=== PATIENT | female | born 1970 | race Caucasian/White ===

== ENCOUNTER 2018-02-09 05:49 | Inpatient (IN) | payer BC ==
[2018-02-09] MEDS ORDERED: METHYLPREDNISOLONE 125 MG INJ ONE (06:21)
--- NOTE | 2018-02-09 06:38 | EDPHYS ---
Physician Documentation [facility] Name: Gris Lee Age: 47 yrs Sex: Female : 1970 Arrival Date: 02/09/2018 Time: 05:52 Bed 4 Private MD: ED Physician Grayson Najera HPI: 02/09 06:33 This 47 yrs old Female presents to ER via Wheelchair with complaints of hilda Breathing Difficulty, Chest Pain. 06:33 The patient has shortness of breath at rest, with light activity. Onset: The hilda symptoms/episode began/occurred 1 week(s) ago. Duration: The symptoms are continuous, and are steadily getting worse. The patient's shortness of breath is aggravated by coughing, talking. Associated signs and symptoms: Pertinent positives: chest pain, non-productive cough, fever. Severity of symptoms: At their worst the symptoms were mild moderate in the emergency department the symptoms are unchanged. The patient has experienced similar episodes in the past, multiple times. Historical: - Allergies: 06:09 Effexor; lp1 06:09 Keflex; lp1 06:09 Paxil; lp1 - Home Meds: 06:09 Synthroid 88 mcg Oral tab 1 tab once daily [Active]; Lasix Oral [Active]; lp1 - PMHx: 06:09 COPD; CHF; Asthma; lp1 - PSHx: 06:09 Cholecystectomy; lp1 - Immunization history:: Adult Immunizations up to date. - Social history:: Smoking status: Patient uses tobacco products, smokes one pack cigarettes per day. - Ebola Screening: : No symptoms or risks identified at this time. - Family history:: not pertinent. ROS: 06:33 Constitutional: Negative for fever, chills, and weight loss, Eyes: Negative for injury, hilda pain, redness, and discharge, ENT: Negative for injury, pain, and discharge, Neck: Negative for injury, pain, and swelling, Cardiovascular: Negative for chest pain, palpitations, and edema, Abdomen/GI: Negative for abdominal pain, nausea, vomiting, diarrhea, and constipation, Back: Negative for injury and pain, : Negative for injury, bleeding, discharge, and swelling, MS/Extremity: Negative for injury and deformity, Skin: Negative for injury, rash, and discoloration, Neuro: Negative for headache, weakness, numbness, tingling, and seizure, Psych: Negative for depression, anxiety, suicide ideation, homicidal ideation, and hallucinations, Allergy/Immunology: Negative for hives, rash, and allergies, Endocrine: Negative for neck swelling, polydipsia, polyuria, polyphagia, and marked weight changes, Hematologic/Lymphatic: Negative for swollen nodes, abnormal bleeding, and unusual bruising. 06:33 Respiratory: Positive for cough, shortness of breath, wheezing, inspiratory, expiratory. Exam: 06:33 Constitutional: This is a well developed, well nourished patient who is awake, alert, hilda and in no acute distress. Head/Face: Normocephalic, atraumatic. Eyes: Pupils equal round and reactive to light, extra-ocular motions intact. Lids and lashes normal. Conjunctiva and sclera are non-icteric and not injected. Cornea within normal limits. Periorbital areas with no swelling, redness, or edema. ENT: Nares patent. No nasal discharge, no septal abnormalities noted. Tympanic membranes are normal and external auditory canals are clear. Oropharynx with no redness, swelling, or masses, exudates, or evidence of obstruction, uvula midline. Mucous membranes moist. Neck: Trachea midline, no thyromegaly or masses palpated, and no cervical lymphadenopathy. Supple, full range of motion without nuchal rigidity, or vertebral point tenderness. No Meningismus. Chest/axilla: Normal chest wall appearance and motion. Nontender with no deformity. No lesions are appreciated. Abdomen/GI: Soft, non-tender, with normal bowel sounds. No distension or tympany. No guarding or rebound. No evidence of tenderness throughout. Back: No spinal tenderness. No costovertebral tenderness. Full range of motion. Female : Normal external genitalia. Skin: Warm, dry with normal turgor. Normal color with no rashes, no lesions, and no evidence of cellulitis. MS/ Extremity: Pulses equal, no cyanosis. Neurovascular intact. Full, normal range of motion. Neuro: Awake and alert, GCS 15, oriented to person, place, time, and situation. Cranial nerves II-XII grossly intact. Motor strength 5/5 in all extremities. Sensory grossly intact. Cerebellar exam normal. Normal gait. Psych: Awake, alert, with orientation to person, place and time. Behavior, mood, and affect are within normal limits. 06:33 Cardiovascular: Rate: tachycardic, Rhythm: regular, Pulses: Pulses are 4+ in bilateral radial, brachial, femoral, popliteal, posterior tibial and and dorsalis pedis arteries.. Heart sounds: normal, Edema: is not appreciated, JVD: is not appreciated. 06:33 Musculoskeletal/extremity: ROM: no acute changes, intact in all extremities, full active range of motion, full passive range of motion, Circulation is intact in all extremities. Sensation intact. Compartment Syndrome exam of affected extremity: is normal. DVT Exam: no pain, no swelling, no tenderness, negative Homans' sign noted on exam, no appreciated bluish discoloration, no erythema, no increased warmth. Vital Signs: 06:00 BP 142 / 74; Pulse 122; Resp 36; Pulse Ox 73% on R/A; Weight 117.93 kg; Height 5 ft. 8 lp1 in. (172.72 cm); 06:09 Pulse Ox 90% on Nebulizer Mask; lp1 06:30 BP 141 / 65; Pulse 113; Resp 32 S; Pulse Ox 90% on Nebulizer Mask; cc3 07:10 Pulse Ox 67% on R/A; hb 07:15 Pulse Ox 85% on 4 lpm NC; hb 07:33 BP 139 / 78; Pulse 106; Resp 20; Pulse Ox 91% on 50% BiPAP; Pain 0/10; ss 07:34 Temp 101.0(A); ss 08:30 BP 135 / 85; Pulse 99; Resp 24; Pulse Ox 94% on 50% BiPAP; hb 09:30 BP 136 / 90; Pulse 99; Resp 19; Pulse Ox 92% on 50% BiPAP; ca1 06:00 Body Mass Index 39.53 (117.93 kg, 172.72 cm) lp1 08:30 BIPAP 14/7, R14, 50% FIO2 hb MDM: 06:27 Patient medically screened. [facility] 06:36 Data reviewed: vital signs, nurses notes, lab test result(s), EKG, radiologic studies, hilda plain films. 02/09 05:58 Order name: Basic Metabolic Panel tw4 02/09 05:58 Order name: CBC with Diff tw4 02/09 05:58 Order name: LFT's; Complete Time: 07:07 tw4 02/09 05:58 Order name: Magnesium; Complete Time: 07:07 tw4 02/09 05:58 Order name: NT PRO-BNP; Complete Time: 07:07 tw4 02/09 05:58 Order name: PT-INR; Complete Time: 07:47 tw4 02/09 05:58 Order name: Troponin (emerg Dept Use Only); Complete Time: 07:07 tw4 02/09 05:58 Order name: Basic Metabolic Panel; Complete Time: 07:07 EDMS 02/09 05:58 Order name: CBC with Automated Diff; Complete Time: 07:06 EDMS 02/09 07:48 Order name: Blood Culture Adult (2) hb 02/09 07:48 Order name: Flu hb 02/09 07:48 Order name: Flu hilda 02/09 07:48 Order name: Blood Culture Adult (2) hilda 02/09 08:14 Order name: ABG hilda 02/09 05:58 Order name: XRAY Chest (1 view) tw4 02/09 07:06 Order name: Echo w/ Doppler hilda 02/09 07:21 Order name: BIPAP [facility] 02/09 08:47 Order name: Influenza Screen (A ; Complete Time: 08:49 EDMS 02/09 09:34 Order name: RAD; Complete Time: 09:48 EDMS 02/09 10:38 Order name: Blood Culture EDWA 02/09 05:58 Order name: EKG; Complete Time: 05:59 tw4 02/09 05:58 Order name: Cardiac monitoring; Complete Time: 06:15 tw4 02/09 05:58 Order name: EKG - Nurse/Tech; Complete Time: 06:13 tw4 02/09 05:58 Order name: IV Saline Lock; Complete Time: 06:13 tw4 02/09 05:58 Order name: Labs collected and sent; Complete Time: 06:13 tw4 02/09 05:58 Order name: O2 Per Protocol; Complete Time: 06:14 tw4 02/09 05:58 Order name: O2 Sat Monitoring; Complete Time: 06:14 tw4 Administered Medications: 05:55 Drug: Albuterol - atroVENT (3:1) (2.5 mg - 0.5 mg) 3 ml Route: Nebulizer; lp1 06:45 Follow up: Response: No adverse reaction hb 06:23 Drug: SOLU-Medrol 125 mg Route: IVP; Site: right antecubital; lp1 07:20 Follow up: Response: No adverse reaction hb 06:50 Drug: Xopenex 2.5 mg Route: Inhalation; cc3 06:53 Drug: Decadron - Dexamethasone 10 mg Route: IVP; Site: right antecubital; cc3 07:40 Follow up: Response: No adverse reaction hb 07:00 Drug: Magnesium Sulfate 2 grams Route: IVPB; Infused Over: 2 hrs; Site: right cc3 antecubital; 07:06 Not Given (Duplicate Order): NS 0.9% 500 ml IV at bolus once hilda 07:09 Not Given (Duplicate Order): NS 0.9% 1000 ml IV at 75 ml/hr continuous hilda 07:45 Drug: Lovenox 1 mg/kg Route: Sub-Q; Site: abdomen; hb 08:30 Follow up: Response: No adverse reaction hb 07:46 Drug: Lasix 40 mg Route: IVP; Site: right antecubital; hb 08:40 Follow up: Response: No adverse reaction hb 07:46 Drug: Aspirin Chewable Tablet 324 mg Route: PO; hb 08:40 Follow up: Response: No adverse reaction hb 07:46 Drug: Pepcid 20 mg Route: IVP; Site: right antecubital; hb 08:30 Follow up: Response: No adverse reaction hb 07:49 CANCELLED (Duplicate Order): Tylenol 650 mg PO once hb 07:57 Drug: Acetaminophen 1000 mg Route: PO; hb 08:45 Follow up: Response: No adverse reaction hb 07:57 Drug: Tamiflu 75 mg Route: PO; hb 08:45 Follow up: Response: No adverse reaction hb 08:00 Drug: levofloxacin 500 mg Volume: 100 ml; Route: IVPB; Infused Over: 60 mins; Site: hb right antecubital; 08:17 Drug: Ativan 0.5 mg Route: IVP; Site: right antecubital; hb 09:00 Follow up: Response: No adverse reaction hb Disposition: 02/09/18 06:37 Hospitalization ordered by Lisa Daniel for Inpatient Admission. Preliminary diagnosis are Dyspnea, Asthma, Bronchitis, not specified as acute or chronic, Hypoxemia, Cardiomegaly, Unspecified combined systolic (congestive) and diastolic (congestive) heart failure, Hypomagnesemia. - Bed requested for Telemetry/MedSurg (Inpatient). - Status is Inpatient Admission. hb - Condition is Stable. - Problem is new. - Symptoms have improved. UTI on Admission? No Signatures: Dispatcher [employer] EDMS Amarilis najera Grayson Álvarez MD MD cha Pena, Laura, RN RN lp1 Giana Carmen RN RN Wyatt Hawkins MD MD tw4 Adelia Maldonado cc3 Corrections: (The following items were deleted from the chart) 07:12 06:37 Hospitalization Ordered by Lisa Daniel MD for Observation. Preliminary hilda diagnosis is Dyspnea; Asthma; Bronchitis, not specified as acute or chronic; Hypoxemia. Bed requested for Telemetry/MedSurg (observation). Status is Observation. Condition is Stable. Problem is new. Symptoms have improved. UTI on Admission? No. hilda 07:12 07:12 02/09/2018 06:37 Hospitalization Ordered by Lisa Daniel MD for Observation. hilda Preliminary diagnosis is Dyspnea; Asthma; Bronchitis, not specified as acute or chronic; Hypoxemia; Cardiomegaly; Unspecified combined systolic (congestive) and diastolic (congestive) heart failure; Hypomagnesemia. Bed requested for Telemetry/MedSurg (observation). Status is Observation. Condition is Stable. Problem is new. Symptoms have improved. UTI on Admission? No. hilda 07:49 07:47 Tylenol 650 mg PO once ordered. hilda hb 09:21 07:12 02/09/2018 06:37 Hospitalization Ordered by Lisa Daniel MD for Inpatient bd Admission. Preliminary diagnosis is Dyspnea; Asthma; Bronchitis, not specified as acute or chronic; Hypoxemia; Cardiomegaly; Unspecified combined systolic (congestive) and diastolic (congestive) heart failure; Hypomagnesemia. Bed requested for Telemetry/MedSurg (observation). Status is Inpatient Admission. Condition is Stable. Problem is new. Symptoms have improved. UTI on Admission? No. hilda 10:00 09:21 02/09/2018 06:37 Hospitalization Ordered by Lisa Daniel MD for Inpatient bd Admission. Preliminary diagnosis is Dyspnea; Asthma; Bronchitis, not specified as acute or chronic; Hypoxemia; Cardiomegaly; Unspecified combined systolic (congestive) and diastolic (congestive) heart failure; Hypomagnesemia. Bed requested for Telemetry/MedSurg (observation). Status is Inpatient Admission. Condition is Stable. Problem is new. Symptoms have improved. UTI on Admission? No. bd 10:15 10:00 02/09/2018 06:37 Hospitalization Ordered by Lisa Daniel MD for Inpatient bd Admission. Preliminary diagnosis is Dyspnea; Asthma; Bronchitis, not specified as acute or chronic; Hypoxemia; Cardiomegaly; Unspecified combined systolic (congestive) and diastolic (congestive) heart failure; Hypomagnesemia. Bed requested for Telemetry/MedSurg (Inpatient). Status is Inpatient Admission. Condition is Stable. Problem is new. Symptoms have improved. UTI on Admission? No. bd 10:40 10:15 02/09/2018 06:37 Hospitalization Ordered by Lisa Daniel MD for Inpatient hb Admission. Preliminary diagnosis is Dyspnea; Asthma; Bronchitis, not specified as acute or chronic; Hypoxemia; Cardiomegaly; Unspecified combined systolic (congestive) and diastolic (congestive) heart failure; Hypomagnesemia. Bed requested for Telemetry/MedSurg (Inpatient). Status is Inpatient Admission. Condition is Stable. Problem is new. Symptoms have improved. UTI on Admission? No. bd
--- NOTE | 2018-02-09 06:38 | ER ---
Nurse's Notes [facility] Name: Gris Lee Age: 47 yrs Sex: Female : 1970 Arrival Date: 02/09/2018 Time: 05:52 Bed 4 Private MD: Diagnosis: Dyspnea;Asthma;Bronchitis, not specified as acute or chronic;Hypoxemia;Cardiomegaly;Unspecified combined systolic (congestive) and diastolic (congestive) heart failure;Hypomagnesemia Presentation: 02/09 06:06 Presenting complaint: Patient states: Shortness of breath since yesterday, worse today; lp1 Albuterol nebs at home with no relief; continued wheezing. Transition of care: patient was not received from another setting of care. Onset of symptoms was February 08, 2018. Risk Assessment: Do you want to hurt yourself or someone else? Patient reports no desire to harm self or others. Initial Sepsis Screen: Does the patient meet any 2 criteria? RR > 20 per min. HR > 90 bpm. Care prior to arrival: None. 06:06 Method Of Arrival: Wheelchair lp1 06:06 Acuity: MARJAN 2 lp1 Triage Assessment: 06:10 General: Appears distressed, Behavior is anxious. Respiratory: Reports shortness of lp1 breath Airway is patent Trachea midline Respiratory effort is labored, Respiratory pattern is tachypnea Breath sounds with wheezes bilaterally. Onset: The symptoms/episode began/occurred yesterday, the patient has severe shortness of breath. Historical: - Allergies: 06:09 Effexor; lp1 06:09 Keflex; lp1 06:09 Paxil; lp1 - Home Meds: 06:09 Synthroid 88 mcg Oral tab 1 tab once daily [Active]; Lasix Oral [Active]; lp1 - PMHx: 06:09 COPD; CHF; Asthma; lp1 - PSHx: 06:09 Cholecystectomy; lp1 - Immunization history:: Adult Immunizations up to date. - Social history:: Smoking status: Patient uses tobacco products, smokes one pack cigarettes per day. - Ebola Screening: : No symptoms or risks identified at this time. - Family history:: not pertinent. Screenin:11 Abuse screen: Denies threats or abuse. Denies injuries from another. Nutritional lp1 screening: No deficits noted. Tuberculosis screening: No symptoms or risk factors identified. Fall Risk None identified. 06:11 Abuse screen: Denies threats or abuse. Nutritional screening: No deficits noted. jd3 Tuberculosis screening: No symptoms or risk factors identified. Fall Risk Ambulatory Aid- None/Bed Rest/Nurse Assist (0 pts). Gait- Normal/Bed Rest/Wheelchair (0 pts) Mental Status- Oriented to own ability (0 pts). Total Queen Fall Scale indicates No Risk (0-24 pts). Assessment: 06:07 General: Appears uncomfortable, Behavior is cooperative, appropriate for age, agitated. jd3 Pain: Denies pain. Neuro: Level of Consciousness is awake, alert, obeys commands, Oriented to person, place, time, situation, Appropriate for age. Cardiovascular: Heart tones S1 S2 present Capillary refill < 3 seconds Patient's skin is warm and dry. Rhythm is regular. Respiratory: Reports shortness of breath at rest Airway is patent Respiratory effort is labored, Respiratory pattern is regular, symmetrical, Breath sounds with wheezes bilaterally. the patient has severe shortness of breath. GI: Abdomen is round non-distended, Patient currently denies abdominal pain. : No signs and/or symptoms were reported regarding the genitourinary system. EENT: No signs and/or symptoms were reported regarding the EENT system. Derm: Skin is intact, Skin is Skin is normal, Skin temperature is warm. Musculoskeletal: Circulation, motion, and sensation intact. Range of motion: intact in all extremities. 07:18 Reassessment: SpO2 67% on RA, improved to 85% on 4LNC, Dr. Najera notified, RT hb notified BIPAP ordered. 07:22 Reassessment: RT at bedside. hb 07:25 Reassessment: BIPAP placed by RT, pt tolerating well. ss 07:30 Reassessment: BIPAP 14/7, R12, 50% FiO2. hb 07:58 Reassessment: T101, Dr. Najera notified, Blood Blood cultures x2 and flu culture hb sent. Tylenol and Tamiflu administered as ordered, BIPAP continues. 08:17 Reassessment: Pt restless, pulling off BiPAP mask, reports feeling "like I am in a wind hb tunnel, I can't take this mask." Dr. Najera notified, Ativan 0.5 mg administered as ordered,and RT notified of ABG order. 08:35 Reassessment: Pt reports anxiety relief, tolerating BIPAP well. hb 09:00 Reassessment: T99. BiPAP continues, pt tolerating well. SpO2 93-94%, Dr. Najera hb aware. Family remains at bedside. Admission ordered, awaiting room assignment at this time. 09:15 Reassessment: Echo at bedside. ca1 Vital Signs: 06:00 BP 142 / 74; Pulse 122; Resp 36; Pulse Ox 73% on R/A; Weight 117.93 kg; Height 5 ft. 8 lp1 in. (172.72 cm); 06:09 Pulse Ox 90% on Nebulizer Mask; lp1 06:30 BP 141 / 65; Pulse 113; Resp 32 S; Pulse Ox 90% on Nebulizer Mask; cc3 07:10 Pulse Ox 67% on R/A; hb 07:15 Pulse Ox 85% on 4 lpm NC; hb 07:33 BP 139 / 78; Pulse 106; Resp 20; Pulse Ox 91% on 50% BiPAP; Pain 0/10; ss 07:34 Temp 101.0(A); ss 08:30 BP 135 / 85; Pulse 99; Resp 24; Pulse Ox 94% on 50% BiPAP; hb 09:30 BP 136 / 90; Pulse 99; Resp 19; Pulse Ox 92% on 50% BiPAP; ca1 06:00 Body Mass Index 39.53 (117.93 kg, 172.72 cm) lp1 08:30 BIPAP 14/7, R14, 50% FIO2 hb ED Course: 05:52 Patient arrived in ED. es 05:55 Inserted saline lock: 20 gauge in right antecubital area, using aseptic technique. lp1 Blood collected. By adriana Reeves. 05:57 Wyatt Mccullough MD is Attending Physician. tw4 06:05 Inserted saline lock: 18 gauge in left antecubital area, using aseptic technique. lp1 06:07 Dewayne Hussein, IMER is Primary Nurse. jd3 06:08 Triage completed. lp1 06:10 Arm band placed on right wrist. lp1 06:10 Patient has correct armband on for positive identification. Placed in gown. Bed in low jd3 position. Call light in reach. Side rails up X 1. Adult w/ patient. 06:27 Attending Physician role handed off by Wyatt Mccullough MD hilda 06:27 Grayson Najera MD is Attending Physician. hilda 06:28 Primary Nurse role handed off by Dewayne Hussein, IMER cc3 06:28 Adelia Maldonado is Primary Nurse. cc3 06:36 Lisa Daniel MD is Hospitalizing Provider. hilda 06:44 X-ray completed. Portable x-ray completed in exam room. Patient tolerated procedure kw well. 07:00 Report given to IMER Faria. cc3 08:17 Giana Carmen RN is Primary Nurse. hb Administered Medications: 05:55 Drug: Albuterol - atroVENT (3:1) (2.5 mg - 0.5 mg) 3 ml Route: Nebulizer; lp1 06:45 Follow up: Response: No adverse reaction hb 06:23 Drug: SOLU-Medrol 125 mg Route: IVP; Site: right antecubital; lp1 07:20 Follow up: Response: No adverse reaction hb 06:50 Drug: Xopenex 2.5 mg Route: Inhalation; cc3 06:53 Drug: Decadron - Dexamethasone 10 mg Route: IVP; Site: right antecubital; cc3 07:40 Follow up: Response: No adverse reaction hb 07:00 Drug: Magnesium Sulfate 2 grams Route: IVPB; Infused Over: 2 hrs; Site: right cc3 antecubital; 07:06 Not Given (Duplicate Order): NS 0.9% 500 ml IV at bolus once hilda 07:09 Not Given (Duplicate Order): NS 0.9% 1000 ml IV at 75 ml/hr continuous hilda 07:45 Drug: Lovenox 1 mg/kg Route: Sub-Q; Site: abdomen; hb 08:30 Follow up: Response: No adverse reaction hb 07:46 Drug: Lasix 40 mg Route: IVP; Site: right antecubital; hb 08:40 Follow up: Response: No adverse reaction hb 07:46 Drug: Aspirin Chewable Tablet 324 mg Route: PO; hb 08:40 Follow up: Response: No adverse reaction hb 07:46 Drug: Pepcid 20 mg Route: IVP; Site: right antecubital; hb 08:30 Follow up: Response: No adverse reaction hb 07:49 CANCELLED (Duplicate Order): Tylenol 650 mg PO once hb 07:57 Drug: Acetaminophen 1000 mg Route: PO; hb 08:45 Follow up: Response: No adverse reaction hb 07:57 Drug: Tamiflu 75 mg Route: PO; hb 08:45 Follow up: Response: No adverse reaction hb 08:00 Drug: levofloxacin 500 mg Volume: 100 ml; Route: IVPB; Infused Over: 60 mins; Site: hb right antecubital; 08:17 Drug: Ativan 0.5 mg Route: IVP; Site: right antecubital; hb 09:00 Follow up: Response: No adverse reaction hb Outcome: 06:37 Decision to Hospitalize by Provider. [facility] 10:40 Patient left the ED. hb Signatures: Grayson Najera MD MD cha Salyer, Edna es Smirch, Shelby, RN RN ss Janel Rodriguez Laura, RN RN lp1 Giana Carmen RN RN Dewayne Tirado RN RN Wyatt Larsen MD MD tw4 Adelia Maldonado cc3 Shawnee Chatterjee RN RN ca1 Corrections: (The following items were deleted from the chart) 06:12 06:07 Respiratory: Airway is patent Respiratory effort is labored, Respiratory pattern jd3 is regular, symmetrical, Breath sounds with wheezes bilaterally. jd3 07:29 07:29 Reassessment: BIPAP placed by RT, pt tolerating well. ss ss
[2018-02-09 06:52] LABS: Absolute Lymphocytes (CBC) 0.4 K/uL (0.7-4.9); Absolute Monocytes 0.5 K/uL (0.1-1.3); Absolute Neutrophil 3.6 K/uL (1.8-8.0); Basophils % 0.3 % (0-1.3); Eosinophils % 0.1 % (0-4.4); Hematocrit 48.5 % (36.0-45.0); Lymphocytes % 8.1 % (15.3-44.8); MPV 8.9 fL (7.6-11.3); Monocytes % 10.4 % (3.3-12.3); RBC Red Blood Cell Count 4.62 M/uL (3.86-4.86)
[2018-02-09] MEDS ORDERED: LEVALBUTEROL 1.25 MG/3 ML NEB ONE (06:54)
[2018-02-09] MEDS ORDERED: DEXAMETHASONE 4 MG/ML VIAL ONE (06:55)
[2018-02-09] MEDS ORDERED: Levofloxacin500mg IV 500 MG/100 ML BAG IV ONE (06:55)
[2018-02-09] MEDS ORDERED: NA CHLORIDE 0.9% 1,000 ML ONE (06:55)
[2018-02-09] MEDS ORDERED: NA CHLORIDE 0.9% 500 ML ONE (06:55)
[2018-02-09] MEDS ORDERED: Magnesium Sulfate 2gm IVPB 2 G/50 ML BAG IV ONE (06:56)
[2018-02-09 07:06] LABS: Albumin 3.3 g/dL (3.4-5.0); Bilirubin Direct 0.5 mg/dL (0-0.2); Bilirubin Total 1.1 mg/dL (0.2-1.0); Magnesium 1.5 mg/dL (1.8-2.4); Potassium 4.6 mmol/L (3.5-5.1); Protein, Total 6.9 g/dL (6.4-8.2); Troponin (Emerg Dept Use Only) 0.06 ng/mL (0.0-0.045)
[2018-02-09 07:15] LABS: Protime INR 1.13
[2018-02-09] MEDS ORDERED: MORPHINE 4 MG/ML SYR IV PRN (07:38)
[2018-02-09] MEDS ORDERED: ACETAMINOPHEN 500 MG TAB PO PRN (07:38)
[2018-02-09] MEDS ORDERED: ONDANSETRON 4 MG/2 ML VIAL IV PRN (07:38)
[2018-02-09] MEDS ORDERED: ENOXAPARIN 100 MG/ML SYR SQ ONE (07:44)
[2018-02-09] MEDS ORDERED: FUROSEMIDE 40 MG/4 ML VIAL ONE (07:44)
[2018-02-09] MEDS ORDERED: ASPIRIN 81 MG CHEWABLE TABLET ONE (07:44)
[2018-02-09] MEDS ORDERED: ACETAMINOPHEN 500 MG TAB ONE (07:45)
[2018-02-09] MEDS ORDERED: FAMOTIDINE 20 MG/2 ML VIAL IV ONE (07:45)
[2018-02-09] MEDS: IPRATROPIUM BROM 0.5MG/2.5ML NEB SCH ×4 (08:00→19:50)
[2018-02-09] MEDS ORDERED: NA CHLORIDE 0.9% 1,000 ML IV SCH (08:00)
[2018-02-09] MEDS ORDERED: OSELTAMIVIR 75 MG CAP ONE (08:03)
[2018-02-09] MEDS ORDERED: LORazepam 2 MG/ML VIAL ONE (08:23)
[2018-02-09 08:35] LABS: Arterial Blood Carboxyhemoglob 3.8 % (0-1.5); Blood Gas Oxyhemoglobin 88.4 % (94-97); Blood O2 Saturation 92.9 % (92-98.5)
--- NOTE | 2018-02-09 09:25 | P.HP ---
Certification for Inpatient Patient admitted to: Inpatient With expected LOS: >2 Midnights Patient will require the following post-hospital care: None Practitioner: I am a practitioner with admitting privileges, knowledge of patient current condition, hospital course, and medical plan of care. Services: Services provided to patient in accordance with Admission requirements found in Title 42 Section 412.3 of the Code of Federal Regulations Patient History Date of Service: 02/09/18 Reason for admission: Shortness of breath History of Present Illness: Patient is a 47-year-old female with a history of asthma and questionable congestive heart failure. She came in because she was having a hard time catching her breath. She used her inhalers as well as her nebulizer treatments with no success. Patient has a history of tobacco use and she also takes Lasix. The Lasix was given because she was told she had congestive heart failure. 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 At this time she was given nebs, steroids, and antibiotics. Clinically her symptoms appear to be improving. She has a chest x-ray which is pending. Will also get an echocardiogram to further assess her prior history. We a counselor regarding her tobacco use. She does a Wanna use she can take were nicotine patch because she thinks she will be able to quit on her own. At this time she will be admitted to the hospital for further evaluation. Allergies cephalexin [From Keflex] Allergy (Verified 02/09/18 07:27) Hives/Rash paroxetine [From Paxil] Allergy (Verified 02/09/18 07:27) Itching/Hives/Rash venlafaxine [From Effexor] Allergy (Verified 02/09/18 07:27) Hives/Rash - Past Medical/Surgical History -: Congestive heart failure -: Asthma -: Tobacco abuse Past Surgical History: Patient denies surgical history - Family History Father Family History: Reviewed- Non-Contributory - Social History Smoking Status: Former smoker Alcohol use: No CD- Drugs: No Review of Systems 10-point ROS is otherwise unremarkable Physical Examination - Vital Signs Temperature: 98 F Blood Pressure: 150/70 Pulse: 110 Respirations: 18 Pulse Ox (%): 89 - Physical Exam General: Alert, In no apparent distress, Oriented x3 HEENT: Atraumatic, Normocephalic Neck: Supple, 2+ carotid pulse no bruit, JVD not distended, No Thyromegaly Respiratory: Diminished, Crackles/rales, Expiratory wheezes Cardiovascular: Regular rate/rhythm, Normal S1 S2, No murmurs Gastrointestinal: Normal bowel sounds, Hypoactive, Soft and benign, Non- distended Musculoskeletal: No clubbing, No swelling Integumentary: No rashes, No breakdown, No significant lesion, No tenderness/ swelling Neurological: Normal gait, Normal speech, Normal strength at 5/5 x4 extr, Normal tone, Sensation intact, Cranial nerves 3-12 intact - Studies Laboratory Data (last 24 hrs) 02/09/18 06:35: PT 13.4 H, INR 1.13 02/09/18 06:35: Sodium 136, Potassium 4.6, BUN 5 L, Creatinine 0.70, Glucose 92 , Magnesium 1.5 L, Total Bilirubin 1.1 H, AST 23, ALT 22, Alkaline Phosphatase 114 02/09/18 05:22: WBC 4.4, Hgb 16.2 H, Hct 48.5 H, Plt Count 121 L Assessment & Plan - Problems (Diagnosis) (1) Asthma exacerbation Current Visit: Yes Status: Acute (2) CHF (congestive heart failure) Current Visit: Yes Status: Acute (3) Hypoxemia Current Visit: Yes Status: Acute - Plan Plan: 1. Nebs, O2 per protocol 2. Peak flows 3. Pulmonary 4. Echocardiogram 5. Chest x-ray 6. IV steroids 7. Antibiotics pending chest x-ray results 8. Immigration Associate regarding tobacco abuse 9. GI and DVT prophylaxis Discharge Plan: Home Plan to discharge in: Greater than 2 days - Advance Directives Does patient have a Living Will: No Does patient have a Durable POA for Healthcare: No - Code Status/Comfort Care Code Status Assessed: Yes Code Status: Full Code Critical Care: No Time Spent Managing PTS Care (In Minutes): 50
--- NOTE | 2018-02-09 09:33 | RAD REPORT ---
EXAM DESCRIPTION: David Single View02/09/2018 6:59 am CLINICAL HISTORY: Shortness of breath COMPARISON: none FINDINGS: Both lung bases are hazy. The right hilum is prominent. The heart is moderately enlarged IMPRESSION: Both lung bases are hazy which could indicate pneumonia. Alveolar pulmonary edema is ano ther consideration. The right hilum is prominent which could indicate lymphadenopathy or enlarged pulmonary artery. Follo w-up is recommended
--- NOTE | 2018-02-09 10:29 | EKG ---
Test Date: 2018-02-09 Test Time: 06:06:24 Clinical Nursing Manager: RUPA MEASUREMENT RESULTS: Intervals: Rate: 116 ME: 136 QRSD: 86 QT: 330 QTc: 458 Keller: P: 66 ME: 136 QRS: 91 T: 65 INTERPRETIVE STATEMENTS: Sinus tachycardia Possible Left atrial enlargement Rightward axis Anterior infarct, age undetermined Abnormal ECG No previous ECG available for comparison Electronically Signed On 02-09-18 10:28:38 STRETCH MACHINE OPERATOR by Lexx Mazariegos
[2018-02-09 11:39] VITALS: BMI 39.5
[2018-02-09] MEDS ORDERED: METHYLPREDNISOLONE 125 MG INJ IV SCH (12:00)
[2018-02-09] MEDS ORDERED: INFLUENZA VACCINE (for 3y+) 0.5 ML DOSE IMVAC ONE (12:00)
--- NOTE | 2018-02-09 12:06 | ECHO ---
HEIGHT: 5 ft 8 in WEIGHT: 260 lb 0 oz DATE OF STUDY: 02/09/[address]: Grayson Najera MD 2-DIMENSIONAL: YES M.MODE: YES DOPPLER: YES COLOR FLOW: YES TDS: PORTABLE: DEFINITY: BUBBLE STUDY: DIAGNOSIS: ASTHMA CARDIAC HISTORY: CATHERIZATION: NO SURGERY: NO PROSTHETIC VALVE: NO PACEMAKER: NO MEASUREMENTS (cm) DIASTOLIC (NORMALS) SYSTOLIC (NORMALS) IVSd 1.1 (0.6-1.2) LA Diam 4.0 (1.9-4.0) LVEF 50-55% LVIDd 5.5 (3.5-5.7) LVIDs 4.3 (2.0-3.5) %FS 22% LVPWd 1.2 (0.6-1.2) Ao Diam 2.9 (2.0-3.7) 2 DIMENSIONAL ASSESSMENT: RIGHT ATRIUM: NORMAL LEFT ATRIUM: NORMAL RIGHT VENTRICLE: NORMAL LEFT VENTRICLE: NORMAL TRICUSPID VALVE: NORMAL MITRAL VALVE: NORMAL PULMONIC VALVE: NORMAL AORTIC VALVE: NORMAL PERICARDIAL EFFUSION: NONE AORTIC ROOT: NORMAL LEFT VENTRICULAR WALL MOTION: NORMAL DOPPLER/COLOR FLOW: MILD AORTIC REGURGITATION, MITRAL REGURGITATION, AND TRICUSPID REGURGITATION. NORMAL RIGHT VENTRICULAR SYSTOLIC PRESSURE. IMPAIRED LEFT VENTRICULAR RELAXATION. COMMENTS: NORMAL LEFT VENTRICULAR EJECTION FRACTION. NORMAL TWO DIMENSIONAL ECHOCARDIOGRAM. MILD AORTIC REGURGITATION, MITRAL REGURGITATION, AND TRICUSPID REGURGITATION. IMPAIRED LEFT VENTRICULAR RELAXATION. TECHNOLOGIST: TALI GARCIA
--- NOTE | 2018-02-09 12:26 | P.CNS ---
Date of Consult: 02/09/18 Chief Complaint: Shortness of breath History of Present Illness: Patient is 47 years of age admitted with sudden onset of shortness of breath cough congestion orthopnea history of obstructive airways disease patient is a heavy smoker uses Symbicort twice a day and pronged short-acting bronchodilators daily the worst attack that denies any fever chills Allergies cephalexin [From Keflex] Allergy (Verified 02/09/18 07:27) Hives/Rash paroxetine [From Paxil] Allergy (Verified 02/09/18 07:27) Itching/Hives/Rash venlafaxine [From Effexor] Allergy (Verified 02/09/18 07:27) Hives/Rash Home Medications: Albuterol Neb [Proventil 0.083% Neb Soln] 1 inh NEB BIDRESP 02/09/18 Budesonide/Formoterol Fumarate [Symbicort 160-4.5 Mcg Inhaler] 2 puff IH BID Furosemide 40 mg PO DAILYPRN PRN 02/09/18 Levothyroxine [Synthroid*] 88 mcg PO DAILY 02/09/18 Pnv No.95/Ferrous Fum/Folic AC [ Multivitamin Tablet] 1 tab PO DAILY - Past Medical/Surgical History Diabetic: No -: Congestive heart failure -: Asthma -: Tobacco abuse -: Hypothyroidism -: Hypoparathyroidism -: Cholecystectomy - Family History Father Family History: Reviewed- Non-Contributory Notes: Hypertension - Social History Smoking Status: Current every day smoker Alcohol use: Yes CD- Drugs: No Caffeine use: No Place of Residence: Home Review of Systems 10-point ROS is otherwise unremarkable General: Weakness Respiratory: Cough, Shortness of Breath Physical Examination Temp Pulse Resp BP Pulse Ox 98 F 99 H 19 136/90 89 L 02/09/18 09:26 02/09/18 09:30 02/09/18 09:30 02/09/18 09:30 02/09/18 09:26 General: Alert, Oriented x3 HEENT: Atraumatic Neck: Supple Respiratory: Expiratory wheezes Cardiovascular: No edema, Regular rate/rhythm Laboratory Data (last 24 hrs) 02/09/18 06:35: PT 13.4 H, INR 1.13 02/09/18 06:35: Sodium 136, Potassium 4.6, BUN 5 L, Creatinine 0.70, Glucose 92 , Magnesium 1.5 L, Total Bilirubin 1.1 H, AST 23, ALT 22, Alkaline Phosphatase 114 02/09/18 05:22: WBC 4.4, Hgb 16.2 H, Hct 48.5 H, Plt Count 121 L - Problems (1) Asthma exacerbation Current Visit: Yes Status: Acute Plan: Patient is 47 years of age admitted with worsening dyspnea I suspect exacerbation of underlying asthma or COPD patient is a heavy smoker 1 pack a day currently doing much better labs reviewed patient was mildly hypercapnic abnormal chest x-ray, a prominent hilum need to repeat PA and lateral Tonsillar to stops smoking once patient feels better room-air sats a satisfactory can be discharged home on prednisone 10 mg twice a day for about 10 days add Spiriva to Symbicort of console her on stopping smoking in to follow up with me in addition to having outpatient pulmonary function testing Qualifiers: Asthma severity: moderate
[2018-02-09] MEDS: ARFORMOTEROL TARTRATE 15 MCG/2 ML VIAL.NEB NEB SCH ×2 (14:27→19:50)
--- NOTE | 2018-02-09 15:07 | CON ---
A 47-year-old woman. Chief Complaint: Dyspnea. Reason For Consult: Possible congestive heart failure. History Of Present Illness: Mrs. Lee has had asthma for all of her life various positions of thought she might have heart failure. She does not recall ever getting an echocardiogram or know any thing for sure that was told by a helper/driver. She has been short of breath for some time. She con tinues to smoke cigarettes. She says that she has quit as of today. Her outpatient medications have been levothyroxine 88 mcg and Paxil. She has had a cholecystectomy. She has been smoking 1 pack pe r day up until yesterday. She denies having any chest pain, orthopnea. Physical Examination: General: She is alert, oriented, pleasant, obese. She is wearing a BiPAP mask that includes her deisi th and nose, but she is able to speak clearly even though it's present. Lungs: Reveal some crackles. Heart: Exam seems to be within normal limits. Abdomen: Soft. Extremities: Trace edema. Distal pulses are within normal limits. Laboratory Data: Reveals a normal white blood cell count. Her hemoglobin is 16.2. Blood gas is pen ding. She has a creatinine of 0.7. Blood sugar of 92. Troponin is 0.06. Bilirubin and direct bili khanna are both slightly high. Impression: The patient is having exacerbate patient of asthma and/or chronic obstructive pulmonary disease. I am not really convinced this is congestive heart failure. An echocardiogram is useful to do. We will gauge much of her treatment based on that, but I would suspect that most likely the ejection fraction will be normal her chest x-ray would not suggest this is conge stive heart failure. DUANE/SIDRA Voice ID: [id number] Report ID: [id number]
[2018-02-09] MEDS: METHYLPREDNISOLONE 40 MG INJ IV SCH ×2 (17:17→23:03)
[2018-02-09] MEDS: ALBUTEROL 2.5 MG/3 ML NEB SOL NEB PRN (17:30)
[2018-02-09] MEDS: TEMAZEPAM 15 MG CAP PO PRN (23:02)
[2018-02-10] MEDS: IPRATROPIUM BROM 0.5MG/2.5ML NEB SCH ×4 (01:57→20:55)
[2018-02-10 04:48] LABS: Absolute Lymphocytes (CBC) 0.1 K/uL (0.7-4.9); Absolute Monocytes 0.3 K/uL (0.1-1.3); Absolute Neutrophil 5.5 K/uL (1.8-8.0); Basophils % 0.1 % (0-1.3); Hematocrit 49.4 % (36.0-45.0); Lymphocytes % 1.8 % (15.3-44.8); MPV 9.1 fL (7.6-11.3); Monocytes % 4.6 % (3.3-12.3); RBC Red Blood Cell Count 4.68 M/uL (3.86-4.86)
[2018-02-10 05:05] LABS: ALT/SGPT 18 U/L (12-78); AST/SGOT 16 U/L (15-37); Albumin 3.2 g/dL (3.4-5.0); Alkaline Phosphatase 96 U/L (45-117); BUN Blood Urea Nitrogen 8 mg/dL (7-18); Bicarbonate 32 mmol/L (21-32); Bilirubin Total 0.8 mg/dL (0.2-1.0); Glucose Level 123 mg/dL (74-106); Potassium 4.6 mmol/L (3.5-5.1); Protein, Total 6.6 g/dL (6.4-8.2); Sodium Level 135 mmol/L (136-145)
[2018-02-10 06:15] LABS: Blood Morphology Comment NOTED (NOT SEEN); Macrocytosis 1+; Platelet Estimate ADEQ
[2018-02-10] MEDS: METHYLPREDNISOLONE 40 MG INJ IV SCH ×4 (07:00→23:19)
[2018-02-10 07:21] LABS: Folic Acid, (Folate) 15.8 ng/mL (3.1-17.5)
[2018-02-10] MEDS: ALBUTEROL 2.5 MG/3 ML NEB SOL NEB PRN ×3 (08:30→18:26)
[2018-02-10] MEDS: ARFORMOTEROL TARTRATE 15 MCG/2 ML VIAL.NEB NEB SCH ×2 (08:30→20:55)
--- NOTE | 2018-02-10 09:34 | PN ---
Mrs. Lee seems to be breathing a little better, wheezing less. Echocardiogram shows that thin gs are in pretty good shape. I think if she quits smoking, she will have much less respiratory troub le. Because of mild diastolic dysfunction, she may indeed require intermittent therapy with a diuret ic. She takes Lasix every day that should suffice. She probably needs a medication to help control blood pressure little better. I would be in favor of an angiotensin receptor rebecca, but I think he r cardiac issues are stable and well controlled, and I plan to sign off from the care of Mrs. Saige perea. DUANE/SIDRA Voice ID: [id number] Report ID: [id number]
--- NOTE | 2018-02-10 10:51 | P.PN ---
Subjective Date of Service: 02/10/18 Chief Complaint: COPD exacerbation Subjective: Improving (Improving still short of breath patient was on BiPAP this morning still has shortness of breath on minimal exertion) Review of Systems General: Weakness Respiratory: Shortness of Breath Physical Examination - Vital Signs Temperature: 98.3 F Blood Pressure: 142/91 Pulse: 94 Respirations: 18 Pulse Ox (%): 87 - Physical Exam General: Alert, Oriented x3, Mild distress Neck: Supple Respiratory: Diminished, Expiratory wheezes Cardiovascular: No edema, Regular rate/rhythm - Studies Microbiology Data (last 24 hrs): 02/09/18 07:52 Nasopharnyx Influenza Type A Antigen Screen - Final 02/09/18 07:52 Nasopharnyx Influenza Type B Antigen Screen - Final Assessment & Plan - Problems (Diagnosis) (1) Asthma exacerbation Current Visit: Yes Status: Acute Plan: Patient is 47 years of age admitted with COPD/asthma exacerbation the trial off BiPAP and may need home oxygen can be discharged home if patient is able to ambulate on oxygen and is able to tolerate of ordered ABG continue with steroids will also need antibiotics at home in addition to an anticholinergic he has been counseled again not to smoke follow up with me next week Qualifiers: Asthma severity: moderate
[2018-02-10] MEDS ORDERED: AZITHROMYCIN 250 MG TAB PO ONE (11:08)
[2018-02-10 11:13] LABS: Arterial Blood Carboxyhemoglob 1.6 % (0-1.5); Blood Gas Oxyhemoglobin 83.7 % (94-97); Blood O2 Saturation 85.3 % (92-98.5)
--- NOTE | 2018-02-10 12:00 | RAD REPORT ---
EXAM DESCRIPTION: RAD - Chest Single View - 02/10/2018 6:56 am CLINICAL HISTORY: Dyspnea Chest pain. COMPARISON: Chest Single View dated 02/09/2018 FINDINGS: Portable technique limits examination quality. Mild opacities are present in both lung bases, appearing mildly improved since prior study. The heart is moderately enlarged in size with enlarged right hilar structures noted. No displaced fractures. IMPRESSION: Mild improvement in lung aeration suspected since comparative study.
[2018-02-10] MEDS: ROFLUMILAST 500 MCG TABLET PO SCH (13:26)
--- NOTE | 2018-02-10 13:37 | P.PN ---
Subjective Date of Service: 02/10/18 Chief Complaint: COPD exacerbation Subjective: Improving Patient seen and examined at bedside. Family at bedside. Case discussed with nursing staff. Patient reports improved breathing, though still wheezing and required BiPAP. Review of Systems As noted Physical Examination - Vital Signs Temperature: 97.5 F Blood Pressure: 126/73 Pulse: 84 Respirations: 18 Pulse Ox (%): 94 - Physical Exam General: Alert, In no apparent distress, Oriented x3 HEENT: Atraumatic, PERRLA, EOMI Neck: Supple, JVD not distended Respiratory: Dull, Crackles/rales, Expiratory wheezes, Inspiratory wheezes Cardiovascular: Regular rate/rhythm, Normal S1 S2 Gastrointestinal: Normal bowel sounds, No tenderness Musculoskeletal: No tenderness Integumentary: No rashes Neurological: Normal speech, Normal tone, Normal affect Lymphatics: No axilla or inguinal lymphadenopathy - Studies Microbiology Data (last 24 hrs): 02/09/18 07:52 Nasopharnyx Influenza Type A Antigen Screen - Final 02/09/18 07:52 Nasopharnyx Influenza Type B Antigen Screen - Final Assessment And Plan - Plan This is a 47-year-old female with: Asthma/COPD exacerbation Continue nebulizer treatments as needed Continue to wean off oxygen/BiPAP as tolerated. ABG done today, hypercapnic and hypoxemic Start azithromycin Continue IV steroids and cholinergic Will need outpatient pulmonology appointment upon discharge for further management. May need home oxygen, social work involved, working on home oxygen set up. Hypoxemia Hypercapnia Essential hypertension Not any home medications prior. Will start patient on lisinopril 10 mg daily. Continue to monitor blood pressures and make adjustments as needed Diastolic congestive heart failure Echocardiogram done, ejection fraction is normal range. Cardiology consulted, no interventions planned at this time. Recommendations appreciated Tobacco abuse Discussed/counseled extensively on smoking cessation. Patient states she is ready to stop smoking when she has tried previously you couple times though has failed. DVT prophylaxis: Lovenox GI prophylaxis: Not needed Diet: Heart healthy Disposition: Pending symptomatic improvement will occur. Continue to try to wean off oxygen.
[2018-02-10] MEDS: TEMAZEPAM 15 MG CAP PO PRN (21:39)
[2018-02-11] MEDS: IPRATROPIUM BROM 0.5MG/2.5ML NEB SCH ×5 (01:38→23:42)
[2018-02-11] MEDS: METHYLPREDNISOLONE 40 MG INJ IV SCH ×3 (05:33→17:22)
[2018-02-11] MEDS: ARFORMOTEROL TARTRATE 15 MCG/2 ML VIAL.NEB NEB SCH ×2 (07:28→20:18)
[2018-02-11] MEDS: AZITHROMYCIN 250 MG TAB PO SCH (09:24)
[2018-02-11] MEDS: LISINOPRIL 10 MG TAB PO SCH (09:25)
[2018-02-11] MEDS: ROFLUMILAST 500 MCG TABLET PO SCH (09:26)
[2018-02-11 11:01] LABS: Arterial Blood Carboxyhemoglob 1.7 % (0-1.5); Blood Gas Oxyhemoglobin 89.3 % (94-97); Blood O2 Saturation 91.2 % (92-98.5)
[2018-02-11] MEDS: ALBUTEROL 2.5 MG/3 ML NEB SOL NEB PRN ×2 (12:18→23:42)
--- NOTE | 2018-02-11 17:14 | P.PN ---
Subjective Date of Service: 02/11/18 Chief Complaint: COPD exacerbation Patient seen and examined at bedside. Family at bedside. Case discussed with nursing staff. Patient reports improved breathing, anymore though still requiring 5 L of oxygen via nasal cannula. Oxygen down to 80% with even little ambulation.. Review of Systems As noted Physical Examination - Vital Signs Temperature: 98.0 F Blood Pressure: 165/99 Pulse: 75 Respirations: 20 Pulse Ox (%): 92 - Physical Exam General: Alert, In no apparent distress, Oriented x3 HEENT: Atraumatic, PERRLA, EOMI Neck: Supple, JVD not distended Respiratory: Dull, Crackles/rales, Expiratory wheezes, Inspiratory wheezes Cardiovascular: Regular rate/rhythm, Normal S1 S2 Gastrointestinal: Normal bowel sounds, No tenderness Musculoskeletal: No tenderness Integumentary: No rashes Neurological: Normal speech, Normal tone, Normal affect Lymphatics: No axilla or inguinal lymphadenopathy - Studies Medications List Reviewed: Yes Assessment And Plan - Plan This is a 47-year-old female with: Acute on chronic Asthma/COPD exacerbation Continue nebulizer treatments as needed Continue to wean off oxygen as tolerated. Continue azithromycin Continue IV steroids and cholinergic Will need outpatient pulmonology appointment upon discharge for further management. May need home oxygen, social work involved, working on home oxygen set up. Hypoxemia Hypercapnia Improving Essential hypertension Not any home medications prior. Will start patient on lisinopril 10 mg daily. Continue to monitor blood pressures and make adjustments as needed Diastolic congestive heart failure, chronic Echocardiogram done, ejection fraction is normal range. Cardiology consulted, no interventions planned at this time. Recommendations appreciated Tobacco abuse Discussed/counseled extensively on smoking cessation. Patient states she is ready to stop smoking though she has tried previously you couple times though has failed. DVT prophylaxis: Lovenox GI prophylaxis: Not needed Diet: Heart healthy Disposition: Pending symptomatic improvement. Continue to try to wean off oxygen. Social work working on setting up home oxygen Physician Review: Patient Assessed, Agree with Above Assessment and Plan Time Spent Managing PTS Care (In Minutes): 45
[2018-02-11] MEDS: TEMAZEPAM 15 MG CAP PO PRN (22:23)
[2018-02-12] MEDS: METHYLPREDNISOLONE 40 MG INJ IV SCH ×4 (00:18→18:00)
[2018-02-12] MEDS: IPRATROPIUM BROM 0.5MG/2.5ML NEB SCH ×3 (02:00→13:36)
[2018-02-12] MEDS: ALBUTEROL 2.5 MG/3 ML NEB SOL NEB PRN (04:10)
[2018-02-12] MEDS: ARFORMOTEROL TARTRATE 15 MCG/2 ML VIAL.NEB NEB SCH (07:44)
[2018-02-12] MEDS: LISINOPRIL 10 MG TAB PO SCH (08:42)
[2018-02-12] MEDS: ROFLUMILAST 500 MCG TABLET PO SCH (08:42)
[2018-02-12] MEDS: AZITHROMYCIN 250 MG TAB PO SCH (08:42)
--- NOTE | 2018-02-12 10:31 | P.PN ---
Subjective Date of Service: 02/12/18 Chief Complaint: COPD exacerbation Subjective: Improving (Patient is doing much better although she has significant desaturation with minimal exertion) Review of Systems Unremarkable Physical Examination - Vital Signs Temperature: 97 F Blood Pressure: 110/78 Pulse: 95 Respirations: 20 Pulse Ox (%): 91 - Physical Exam General: Alert, Oriented x3 HEENT: Atraumatic Neck: Supple Respiratory: Expiratory wheezes (Still has some wheezing more prominent on the right side) Cardiovascular: No edema, Normal S1 S2 - Studies Medications List Reviewed: Yes Assessment & Plan - Problems (Diagnosis) (1) Asthma exacerbation Current Visit: Yes Status: Acute Plan: Patient is 47 years of age admitted with COPD exacerbation patient is currently doing much better oxygen requirements have decreased I sat is 92% on 4 L nasal cannula oxygen COPD is now currently stable eyes and is stable to be discharged on nasal cannula oxygen to follow up with me in 2 weeks she is to be discharged on oxygen prednisone levofloxacin and Spiriva in addition to the Symbicort inhaler counseled again not to smoke bottle signs all stable follow up with me in 1-2 weeks Qualifiers: Asthma severity: moderate Physician Review: Patient Assessed, Agree with Above Assessment and Plan
--- NOTE | 2018-02-12 13:26 | P.PN ---
Subjective Date of Service: 02/12/18 Chief Complaint: COPD exacerbation Subjective: Improving, Doing well Patient seen and examined at bedside. Family at bedside. Case discussed with nursing staff. Patient reports improvement, almost back to baseline. Still descending with minimal exertion. Review of Systems As noted Physical Examination - Vital Signs Temperature: 97.9 F Blood Pressure: 161/98 Pulse: 68 Respirations: 20 Pulse Ox (%): 91 - Physical Exam General: Alert, In no apparent distress, Oriented x3 HEENT: Atraumatic, PERRLA, EOMI Neck: Supple, JVD not distended Respiratory: Expiratory wheezes, Inspiratory wheezes Cardiovascular: Regular rate/rhythm, Normal S1 S2 Gastrointestinal: Normal bowel sounds, No tenderness Musculoskeletal: No tenderness Integumentary: No rashes Neurological: Normal speech, Normal tone, Normal affect Lymphatics: No axilla or inguinal lymphadenopathy - Studies Medications List Reviewed: Yes Assessment And Plan - Plan This is a 47-year-old female with: Acute on chronic Asthma/COPD exacerbation, stable Continue nebulizer treatments as needed Continue to wean off oxygen as tolerated. Continue azithromycin Continue IV steroids and cholinergic Will need outpatient pulmonology appointment upon discharge for further management. May need home oxygen, social work involved, working on home oxygen set up. Hypoxemia Hypercapnia Essential hypertension Not any home medications prior. Will start patient on lisinopril 10 mg daily. Continue to monitor blood pressures and make adjustments as needed Diastolic congestive heart failure, chronic Echocardiogram done, ejection fraction is normal range. Cardiology consulted, no interventions planned at this time. Recommendations appreciated Tobacco abuse Discussed/counseled extensively on smoking cessation. Patient states she is ready to stop smoking though she has tried previously you couple times though has failed. DVT prophylaxis: Lovenox GI prophylaxis: Not needed Diet: Heart healthy Disposition: Discharged home today with home oxygen. Physician Review: Patient Assessed, Agree with Above Assessment and Plan Time Spent Managing PTS Care (In Minutes): 55
[2018-02-12] MEDS ORDERED: INFLUENZA VACCINE (for 3y+) 0.5 ML DOSE IMVAC ONE (16:00)
[2018-02-12 17:04] VITALS: BP 156/89; TEMP 97.6
[2018-02-12 17:59] VITALS: O2SAT 90
--- NOTE | 2018-03-04 12:22 | P.DS ---
Admission Date: 02/09/18 Discharge Date: 03/04/18 Disposition: ROUTINE DISCHARGE Discharge Condition: FAIR Reason for Admission: COPD exacerbation Consultations: Pulmonology, Dr. Montenegro Brief History of Present Illness: Patient is a 47-year-old female with a history of asthma and questionable congestive heart failure. She came in because she was having a hard time catching her breath. She used her inhalers as well as her nebulizer treatments with no success. Patient has a history of tobacco use and she also takes Lasix. The Lasix was given because she was told she had congestive heart failure. 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 At this time she was given nebs, steroids, and antibiotics. Clinically her symptoms appear to be improving. She has a chest x-ray which is pending. Will also get an echocardiogram to further assess her prior history. We a counselor regarding her tobacco use. She does a Wanna use she can take were nicotine patch because she thinks she will be able to quit on her own. At this time she will be admitted to the hospital for further evaluation. Hospital Course: Acute on chronic Asthma/COPD exacerbation, stable She was treated with nebulizer treatments, azithromycin, IV steroids and cholinergics. Pulmonolgoy was consulted. Her symptoms did improve though she was de satting with exertion off of the oxygen. Home health for home oxygen was set up for patient prior to discharge. She was also extensively counseled on smoking cessation as this is what's likely causing her symptoms to get worse. Resources were provided to patient. She was discharged with instructions to follow up with Dr. Montenegro as an outpatient. Hypoxemia Hypercapnia Essential hypertension Not any home medications prior. Will start patient on lisinopril 10 mg daily. Discharge patient on 10 mg of lisinopril Diastolic congestive heart failure, chronic Echocardiogram done, ejection fraction is normal range. Cardiology consulted, no interventions planned at this time. Recommendations appreciated Tobacco abuse Discussed/counseled extensively on smoking cessation. Vital Signs/Physical Exam: Temp Pulse Resp BP Pulse Ox 97.6 F 70 20 156/89 H 90 L 02/12/18 16:00 02/12/18 16:00 02/12/18 16:00 02/12/18 16:00 02/12/18 16:00 General: Alert, In no apparent distress, Oriented x3 HEENT: Atraumatic, PERRLA, EOMI Neck: Supple, JVD not distended Respiratory: Normal air movement, Expiratory wheezes Cardiovascular: Regular rate/rhythm, Normal S1 S2 Gastrointestinal: Normal bowel sounds, No tenderness Musculoskeletal: No tenderness Integumentary: No rashes Neurological: Normal speech, Normal tone, Normal affect Lymphatics: No axilla or inguinal lymphadenopathy Laboratory Data at Discharge: WBC 5.9 K/uL (4.3-10.9) D 02/10/18 03:51 Hgb 16.2 g/dL (12.0-15.0) H 02/10/18 03:51 Hct 49.4 % (36.0-45.0) H 02/10/18 03:51 Plt Count 100 K/uL (152-406) L 02/10/18 03:51 PT 13.4 SECONDS (9.5-12.5) H 02/09/18 06:35 INR 1.13 02/09/18 06:35 Sodium 135 mmol/L (136-145) L 02/10/18 03:51 Potassium 4.6 mmol/L (3.5-5.1) 02/10/18 03:51 BUN 8 mg/dL (7-18) 02/10/18 03:51 Creatinine 0.60 mg/dL (0.55-1.3) 02/10/18 03:51 Glucose 123 mg/dL (74-106) H 02/10/18 03:51 Magnesium 1.5 mg/dL (1.8-2.4) L 02/09/18 06:35 Total Bilirubin 0.8 mg/dL (0.2-1.0) 02/10/18 03:51 AST 16 U/L (15-37) 02/10/18 03:51 ALT 18 U/L (12-78) 02/10/18 03:51 Alkaline Phosphatase 96 U/L (45-117) 02/10/18 03:51 Home Medications: Budesonide/Formoterol Fumarate [Symbicort 160-4.5 Mcg Inhaler] 2 puff IH BID Furosemide 40 mg PO DAILYPRN PRN 02/09/18 Levothyroxine [Synthroid*] 88 mcg PO DAILY 02/09/18 Pnv No.95/Ferrous Fum/Folic AC [ Multivitamin Tablet] 1 tab PO DAILY Umeclidinium [place] [Incruse Ellipta] 62.5 mcg IH DAILY 30 Days #1 blst.w.dev 02/09/18 predniSONE [Deltasone] 10 mg PO BID #20 tab 02/09/18 levoFLOXacin [Levaquin] 500 mg PO DAILY #7 tab 02/10/18 Albuterol Sulfate [Albuterol Sulfate 0.083% Neb Soln] 2.5 mg IH BID #50 amp Lisinopril [Prinivil*] 10 mg PO DAILY #30 tab 02/12/18 New Medications: Albuterol Sulfate [Albuterol Sulfate 0.083% Neb Soln] 2.5 mg IH BID #50 amp levoFLOXacin [Levaquin] 500 mg PO DAILY #7 tab Lisinopril [Prinivil*] 10 mg PO DAILY #30 tab predniSONE [Deltasone] 10 mg PO BID #20 tab Umeclidinium [place] [Incruse Ellipta] 62.5 mcg IH DAILY 30 Days #1 blst.w.dev Patient Discharge Instructions: Patient to follow with Dr. Montenegro in 1-2 weeks Diet: Regular Activity: Ad doroteo Followup: Jamal Montenegro MD [ACTIVE - CAN ADMIT] - Physician Review: Patient Assessed, Agree with Above Assessment and Plan Time spent managing pt's care (in minutes): 55
== END 2018-02-12 18:42 | disposition home or self-care (01) | DRG 191 ==
LOC: ER 05:49 → ERHOLD 06:38 → 4TH 09:26 → OBSVTOIN 10:57
PROVIDERS: ADMIT Hospitalist; ATTEND Family Medicine
PROC: 5A09457 Assistance with Respiratory Ventilation, 24-96 Consecutive Hours, Continuous Positive Airway Pressure (ICD-10-PCS; principal; 2018-02-09)
DX: J44.1 Chronic obstructive pulmonary disease with (acute) exacerbation (principal); I50.32 Chronic diastolic (congestive) heart failure; F17.210 Nicotine dependence, cigarettes, uncomplicated; E20.9 Hypoparathyroidism, unspecified; Z88.1 Allergy status to other antibiotic agents; Z88.8 Allergy status to other drugs, medicaments and biological substances; Z79.51 Long term (current) use of inhaled steroids; E03.9 Hypothyroidism, unspecified; R09.02 Hypoxemia; R06.89 Other abnormalities of breathing; I11.0 Hypertensive heart disease with heart failure
CPT/HCPCS: 36415; 71045; 80048; 80053; 80076; 82607; 82746; 82805; 83735; 83880; 84484; 85025; 85610; 87040; 87804; 93005; 93306; 94640; 94660; 94760; 96372; 96374; 96375; 99284; G0008; J1650; J1940; J2920; J2930; J3475; J7030; J7605; Q2035